=== PATIENT | male | born 1980 | race Caucasian/White ===

== ENCOUNTER → 2018-12-19 06:46 | Outpatient (CLI) | payer OTHER, SELFPAY ==
--- NOTE | 2018-12-19 | DI.ECHO.S_ITS ---
[facility] +---------+ : : [address] : [place] : : : : [id number] : : : : Phone: [phone]---------+ Echocardiogram Report + + :Name: ESTELA ZAIDI Study Date: 12/19/2018 Height: 67 in : :[facility] Weight: 216 lb : : Gender: Male BSA: 2.1 m2 : :: 1980 Age: 38 yrs BP: 140/92 mmHg: :Reason For Study: MURMUR : : Performed By: Brent Schulte : :Referring: ARIANNA PEPE : + + Interpretation Summary Normal sinus rhythm. Normal LV size, wall thickness, wall motion and LV systolic function. EF is 60-65%. Normal chamber sizes. No significant valvular abnormalities. No prior study available for comparison. No etiology of murmur identified. Procedure: A two-dimensional transthoracic echocardiogram with color flow and Doppler was performed. The study quality was technically adequate. There is no prior echocardiogram noted for this patient. The patient was in normal sinus rhythm during the exam. Left Ventricle: The left ventricle is normal in size. There is normal left ventricular wall thickness. The ejection fraction is estimated to be 60-65%. There are no focal wall motion abnormalities. Right Ventricle: The right ventricle is normal in size and function. Atria: Both atria are normal in size. The interatrial septum is intact with no evidence for an atrial septal defect. Mitral Valve: The mitral valve is normal in structure and function. There is trace mitral regurgitation. Aortic Valve: The aortic valve is trileaflet. The aortic valve opens well. There is trace aortic regurgitation. Tricuspid Valve: The tricuspid valve is normal in structure and function. No tricuspid regurgitation. Pulmonary artery pressures cannot be estimated because of the lack of a measurable TR jet velocity. Pulmonic Valve: The pulmonic valve is normal in structure and function. There is trace pulmonic regurgitation. Great Vessels: The aortic root is normal size. The dimensions of the ascending aorta are normal. The pulmonary artery is normal size. Pericardium/ Pleura There is no pericardial effusion. There is no pleural effusion. MMode/2D Measurements & Calculations LVIDd: 4.8 cm LVOT diam: 2.2 cm LVIDs: 3.2 cm Ao root diam: 3.0 cm FS: 33.8 % asc Aorta Diam: 3.0 cm EPSS: 0.65 cm Ao Arch Diam (Prox Trans): 2.5 cm IVSd: 0.81 cm LVPWd: 0.87 cm LV bray. diameter/BSA (cm/m^2): 2.3 LV sys. diameter/BSA (cm/m^2): 1.5 LA dimension: 3.8 cm RA long axis: 4.2 cm LA A2 area: 17.3 cm2 RA area: 15.7 cm2 LA A4 area: 17.4 cm2 RA vol: 49.4 ml LA length (vol): 5.2 cm RA : 23.7 ml/m2 LA vol: 49.1 ml IVC diam: 1.7 cm LA vol index: 23.5 ml/m2 RVD1 (basal): 4.1 cm RVD2 (mid): 4.0 cm Doppler Measurements & Calculations Ao V2 max: 127.0 cm/sec LVOT Max Ramón: 117.9 cm/sec Ao V2 mean: 85.3 cm/sec LV V1 max P.6 mmHg Ao max P.4 mmHg LV V1 VTI: 23.7 cm Ao mean P.2 mmHg HEATH(I,D): 4.3 cm2 Ao V2 VTI: 20.3 cm HEATH(V,D): 3.4 cm2 sev ratio: 1.2 HEATH indexed to BSA (cm^2/m^2): 2.1 MV E max ramón: 88.2 cm/sec PA V2 max: 101.2 cm/sec MV A max ramón: 62.0 cm/sec PA V2 mean: 70.3 cm/sec MV E/A: 1.4 PA mean P.1 mmHg Med Peak E' Ramón: 5.6 cm/sec PA pr(Accel): 41.6 mmHg E/E' med: 15.8 PA Accel Time: 0.07 sec Lat Peak E' Ramón: 14.2 cm/sec E/E' lat: 6.2 E/e' average: 11.0 MV dec time: 0.20 sec SV(LVOT): 87.7 ml Electronically signed by: Germaine Warner M.D. on Reading Physician:12/19/2018 11:33 PM
== END ==
PROVIDERS: Visit Provider Physician Assistant
DX: R01.1 Cardiac murmur, unspecified (principal)
CPT/HCPCS: 93306